=== PATIENT | male | born 1950 | race Caucasian/White ===

== ENCOUNTER 2016-06-22 14:02 | Emergency (ER) | payer MEDICARE ==
[2016-06-22] MEDS ORDERED: SODIUM CHLORIDE 0.9% 500 ML IV STA (14:59)
--- NOTE | 2016-06-22 15:21 | ED ---
Nausea/Vomiting/Diarrhea HPI - General Chief complaint: Abdominal Pain Stated complaint: [facility] sent/Abd Pain Time Seen by Provider: 06/22/16 14:26 Source: patient Mode of arrival: ambulatory Limitations: no limitations - History of Present Illness Initial comments: This patient is a 66-year-old man who presents to be evaluated for diarrhea and abdominal bloating. The patient was in his usual state of health until yesterday in the evening. He had eaten his dinner and then after 1-2 hours noted that his abdomen was feeling bloated. He was particularly having pressure in the epigastric area. Shortly after that he began to have a number of watery bowel movements. He did state that his abdomen felt hard to him. When the diarrhea continued this morning he went to the urgent care and was referred here. He did have an influenza test that was negative. The patient states he has not had coughing or dyspnea. He does not believe he had a fever. Patient does note that since he diarrhea has not been urinating much and his urine was a little darker. He did have some nausea this morning and had one small episode of vomiting without any blood or coffee-ground material MD complaint: nausea, vomiting, diarrhea -: hour(s) Description of Vomiting: food contents Description of Diarrhea: water Location: diffuse Severity: mild Quality: other (Bloating) Consistency: constant Improves with: none Worsens with: none - Related Data Home Medications Medication Instructions Recorded Confirmed Cholecalciferol [Vitamin D3] 5,000 unit PO HS 12/11/14 06/22/16 Omeprazole [PriLOSEC] 20 mg PO HS 12/11/14 06/22/16 Flaxseed Oil 1400mg 1,400 mg PO DAILY 06/22/16 06/22/16 Saw [place] 450mg 450 mg PO DAILY 06/22/16 06/22/16 Topiramate [Topamax] 50 mg PO BID 06/22/16 06/22/16 amLODIPine [Norvasc] 2.5 mg PO DAILY 06/22/16 06/22/16 Previous Rx's Medication Instructions Recorded Aspirin EC [Ecotrin] 325 mg PO DAILY tablet. 04/11/15 Atorvastatin [Lipitor] 40 mg PO DAILY tab 04/11/15 Fenofibrate [Lofibra] 160 mg PO DAILY tab 04/11/15 Metoprolol Tartrate [Lopressor] 25 mg PO BID tab 04/11/15 Metoclopramide [Reglan] 10 mg PO ACHS #12 tab 06/22/16 Allergies Allergy/AdvReac Type Severity Reaction Status Date / Time lactose Allergy Nausea & Verified 06/22/16 14:39 Vomiting & Diarrhea Review of Systems ROS Statement: Those systems with pertinent positive or pertinent negative responses have been documented in the HPI. ROS Other: All systems not noted in ROS Statement are negative. Constitutional: Denies: fever, chills Respiratory: Denies: cough, dyspnea Cardiovascular: Denies: chest pain, edema, syncope Gastrointestinal: Reports: abdominal pain, nausea, vomiting, diarrhea. Denies: hematemesis, melena, hematochezia Genitourinary: Denies: dysuria Musculoskeletal: Denies: back pain Skin: Denies: rash Neurological: Denies: headache Past Medical History Past Medical History: GERD/Reflux, Hyperlipidemia, Prostate Disorder Additional Past Medical History / Comment(s): hx lt orchitis; Blind since History of Any Multi-Drug Resistant Organisms: None Reported Past Surgical History: Hernia Repair, Orthopedic Surgery Additional Past Surgical History / Comment(s): LT TESTICLE PROCEDURE TO RELIEVE ORCHITIS. COLONOSCOPY (polyps removed). RT SHOULDER SX Past Anesthesia/Blood Transfusion Reactions: No Reported Reaction Past Psychological History: No Psychological Hx Reported Smoking Status: Never smoker Past Alcohol Use History: Occasional Past Drug Use History: None Reported - Past Family History Mother Family Medical History: No Reported History Father Additional Family Medical History / Comment(s): aortic aneurysms General Exam Limitations: no limitations General appearance: alert, in no apparent distress Head exam: Present: atraumatic, normocephalic Eye exam: Present: normal appearance. Absent: scleral icterus, conjunctival injection ENT exam: Present: normal oropharynx Respiratory exam: Present: normal lung sounds bilaterally. Absent: respiratory distress, wheezes, rales, rhonchi, stridor Cardiovascular Exam: Present: regular rate, normal rhythm, normal heart sounds. Absent: systolic murmur, diastolic murmur, rubs, gallop GI/Abdominal exam: Present: soft, distended, diminished bowel sounds. Absent: tenderness, guarding, rebound, mass, bruit, pulsatile mass, hernia Extremities exam: Present: normal inspection, normal capillary refill. Absent: pedal edema, calf tenderness Back exam: Absent: CVA tenderness (R), CVA tenderness (L) Neurological exam: Present: alert Skin exam: Present: warm, dry, intact, normal color. Absent: rash Course Vital Signs 06/22/16 14:19 Temperature 98.3 F Pulse Rate 98 Respiratory 17 Rate Blood Pressure 149/79 O2 Sat by Pulse 96 Oximetry Medical Decision Making - Lab Data Result diagrams: 06/22/16 15:00 06/22/16 15:00 Lab Results 06/22/16 06/22/16 06/22/16 Range/Units 15:00 15:00 15:00 WBC 5.5 (3.8-10.6) k/uL RBC 5.01 (4.30-5.90) m/uL Hgb 14.1 (13.0-17.5) gm/dL Hct 43.1 (39.0-53.0) % MCV 86.0 (80.0-100.0) fL MCH 28.1 (25.0-35.0) pg MCHC 32.7 (31.0-37.0) g/dL RDW 14.2 (11.5-15.5) % Plt Count 228 (150-450) k/uL Neutrophils % 82 % Lymphocytes % 11 % Monocytes % 5 % Eosinophils % 1 % Basophils % 0 % Neutrophils # 4.5 (1.3-7.7) k/uL Lymphocytes # 0.6 L (1.0-4.8) k/uL Monocytes # 0.3 (0-1.0) k/uL Eosinophils # 0.0 (0-0.7) k/uL Basophils # 0.0 (0-0.2) k/uL Sodium 145 (137-145) mmol/L Potassium 4.0 (3.5-5.1) mmol/L Chloride 112 H (98-107) mmol/L Carbon Dioxide 18 L (22-30) mmol/L Anion Gap 15 mmol/L BUN 29 H (9-20) mg/dL Creatinine 1.10 (0.66-1.25) mg/dL Est GFR (MDRD) Af Amer >60 (>60 ml/min/1.73 sqM) Est GFR (MDRD) Non-Af >60 (>60 ml/min/1.73 sqM) Glucose 115 H (74-99) mg/dL Plasma Lactic Acid Roberto 1.3 (0.7-2.0) mmol/L Calcium 8.8 (8.4-10.2) mg/dL Total Bilirubin 1.1 (0.2-1.3) mg/dL AST 35 (17-59) U/L ALT 75 H (21-72) U/L Alkaline Phosphatase 50 (38-126) U/L Total Protein 7.8 (6.3-8.2) g/dL Albumin 4.5 (3.5-5.0) g/dL Amylase 43 (30-110) U/L Lipase 99 (23-300) U/L Urine Color Urine Appearance (Clear) Urine pH (5.0-8.0) Ur Specific [place] (1.001-1.035) Urine Protein (Negative) Urine Glucose (UA) (Negative) Urine Ketones (Negative) Urine Blood (Negative) Urine Nitrate (Negative) Urine Bilirubin (Negative) Urine Urobilinogen (<2.0) mg/dL Ur Leukocyte Esterase (Negative) 06/22/16 Range/Units 17:00 WBC (3.8-10.6) k/uL RBC (4.30-5.90) m/uL Hgb (13.0-17.5) gm/dL Hct (39.0-53.0) % MCV (80.0-100.0) fL MCH (25.0-35.0) pg MCHC (31.0-37.0) g/dL RDW (11.5-15.5) % Plt Count (150-450) k/uL Neutrophils % % Lymphocytes % % Monocytes % % Eosinophils % % Basophils % % Neutrophils # (1.3-7.7) k/uL Lymphocytes # (1.0-4.8) k/uL Monocytes # (0-1.0) k/uL Eosinophils # (0-0.7) k/uL Basophils # (0-0.2) k/uL Sodium (137-145) mmol/L Potassium (3.5-5.1) mmol/L Chloride (98-107) mmol/L Carbon Dioxide (22-30) mmol/L Anion Gap mmol/L BUN (9-20) mg/dL Creatinine (0.66-1.25) mg/dL Est GFR (MDRD) Af Amer (>60 ml/min/1.73 sqM) Est GFR (MDRD) Non-Af (>60 ml/min/1.73 sqM) Glucose (74-99) mg/dL Plasma Lactic Acid Roberto (0.7-2.0) mmol/L Calcium (8.4-10.2) mg/dL Total Bilirubin (0.2-1.3) mg/dL AST (17-59) U/L ALT (21-72) U/L Alkaline Phosphatase (38-126) U/L Total Protein (6.3-8.2) g/dL Albumin (3.5-5.0) g/dL Amylase (30-110) U/L Lipase (23-300) U/L Urine Color Yellow Urine Appearance Clear (Clear) Urine pH 5.5 (5.0-8.0) Ur Specific [place] 1.026 (1.001-1.035) Urine Protein Trace H (Negative) Urine Glucose (UA) Negative (Negative) Urine Ketones Negative (Negative) Urine Blood Negative (Negative) Urine Nitrate Negative (Negative) Urine Bilirubin Negative (Negative) Urine Urobilinogen <2.0 (<2.0) mg/dL Ur Leukocyte Esterase Negative (Negative) Disposition Clinical Impression: Abdominal bloating Disposition: HOME SELF-CARE Condition: Fair Instructions: Indigestion (ED), Gastroparesis (ED) Prescriptions: Metoclopramide [Reglan] 10 mg PO ACHS #12 tab Referrals: Raúl Rush MD [Primary Care Provider] - 1-2 days Kimmie Simpson MD [STAFF PHYSICIAN] - 1-2 days
[2016-06-22 15:26] LABS: Basophils % (A) 0 %; CH 28.3; Eosinophils % (A) 1 %; HCT 43.1 % (39.0-53.0); HDW 2.92; HGB 14.1 gm/dL (13.0-17.5); Luc # (Auto) 0.08; Luc % (Auto) 2; Lymphocytes # (A) 0.6 k/uL (1.0-4.8); Lymphocytes % (A) 11 %; MCH 28.1 pg (25.0-35.0); MCHC 32.7 g/dL (31.0-37.0); Monocytes # (A) 0.3 k/uL (0-1.0); Monocytes % (A) 5 %; Neutrophils # (A) 4.5 k/uL (1.3-7.7); Neutrophils % (A) 82 %; RBC 5.01 m/uL (4.30-5.90); RDW 14.2 % (11.5-15.5); WBC 5.5 k/uL (3.8-10.6); WBC (Perox) 5.95
[2016-06-22 15:29] LABS: ALT 75 U/L (21-72); AST 35 U/L (17-59); Alkaline Phosphatase 50 U/L (38-126); Amylase 43 U/L (30-110); Anion Gap 15 mmol/L; Blood Urea Nitrogen 29 mg/dL (9-20); Calcium 8.8 mg/dL (8.4-10.2); Carbon Dioxide 18 mmol/L (22-30); Chloride 112 mmol/L (98-107); Glucose 115 mg/dL (74-99); Non-African American GFR(MDRD) >60 (>60 ml/min/1.73 sqM); Sodium 145 mmol/L (137-145); Total Bilirubin 1.1 mg/dL (0.2-1.3); Total Protein 7.8 g/dL (6.3-8.2)
--- NOTE | 2016-06-22 15:51 | XR ---
EXAMINATION TYPE: XR abdomen acute w cxr DATE OF EXAM: 06/22/2016 3:43 PM COMPARISON: NONE HISTORY: Pain TECHNIQUE: Supine, upright, and left side down lateral decubitus views of the abdomen are obtained. FINDINGS: Single view of the chest fail to demonstrate evidence for acute pulmonary disease. There is no evidence for pneumoperitoneum. Noted are on mildly dilated loops of small bowel measuring up to 3.5 cm. Air is seen within the colon . The findings may reflect ileus however distal small bowel obstruction is difficult to exclude. Prog ress studies are recommended. Scattered air-fluid levels noted. No mass effects are seen. No unusual calcifications. IMPRESSION: Small bowel ileus versus obstruction. The correlate clinically and progress studies may be of value.
--- NOTE | 2016-06-22 16:23 | CT ---
EXAMINATION TYPE: CT abdomen pelvis wo con DATE OF EXAM: 06/22/2016 4:14 PM COMPARISON: NONE HISTORY: Patient complains of bloating. CT DLP: 893.6 mGycm FINDINGS: LUNG BASES: No evidence for nodule. No evidence for infiltrate. LIVER/GB: The gallbladder is unremarkable. No space-occupying hepatic lesion. There is fatty hepatic infiltration. PANCREAS: No pancreatic mass identified. No inflammatory process seen. SPLEEN: No evidence for splenomegaly. No intrasplenic lesions seen. ADRENALS: No adrenal nodules identified. No evidence for thickening. KIDNEYS: 3.1 cm cystic lesion left kidney may reflect a cyst. No nephrolithiasis. No hydronephrosis. BOWEL: Gastric distention with food debris. Appendix has a normal appearance. No evidence of bowel ob struction. No inflammatory process. Fat-containing inguinal hernias. Lymph nodes: No evidence for adenopathy greater than 1 cm. Abdominal aorta: Atheromatous changes seen. No evidence for aneurysm. Genital organs: No significant abnormality. Other: No significant abnormality. IMPRESSION: 1. GASTRIC DISTENTION WITH FOOD DEBRIS. CONSIDER DIRECT VISUALIZATION. 2. FATTY LIVER.
[2016-06-22 17:22] LABS: Appearance,Urine Clear (Clear); Bilirubin,Urine Negative (Negative); Glucose,Urine (UA) Negative (Negative); Ketones,Urine Negative (Negative); Leukocyte Esterase,Urine Negative (Negative); Nitrite,Urine Negative (Negative); PH, Urine 5.5 (5.0-8.0); Protein,Urine Trace (Negative); Specific Gravity,Urine 1.026 (1.001-1.035); UA Billing (MACRO vs. MICRO) CHEM; Urobilinogen,Urine <2.0 mg/dL (<2.0)
[2016-06-22 18:10] VITALS: BP 138/72; PULSE 82; RESP 20; TEMP 98
== END 2016-06-22 18:33 | disposition home or self-care (01) ==
LOC: EC 14:02
DX: R14.0 Abdominal distension (gaseous) (principal); K21.9 Gastro-esophageal reflux disease without esophagitis; E78.5 Hyperlipidemia, unspecified; N42.9 Disorder of prostate, unspecified; H54.0 Blindness, both eyes; Z91.011 Allergy to milk products; Z79.899 Other long term (current) drug therapy; Z79.82 Long term (current) use of aspirin
CPT/HCPCS: 36415; 74022; 74176; 80053; 81003; 82150; 83605; 83690; 85025; 99284

== ENCOUNTER 2016-06-25 09:56 | Day surgery (SDC) | payer MEDICARE ==
[2016-06-24 08:08] VITALS: BMI 30.5
[2016-06-25 10:40] VITALS: RESP 16; TEMP 97.9
[2016-06-25] MEDS ORDERED: LIDOCAINE 1% 20 ML VIAL (10MG/ML) FOR IV START INTRADERMA ONE (10:44)
[2016-06-25] MEDS ORDERED: LACTATED RINGERS 1,000 ML IV ONE (10:50)
[2016-06-25] MEDS ORDERED: LACTATED RINGERS 1,000 ML IV SCH (11:00)
[2016-06-25] MEDS ORDERED: PROPOFOL 10 MG/ML 20 ML VIAL IV ONE (11:31)
[2016-06-25] MEDS ORDERED: LIDOCAINE 1% INJ 10MG/ML (20 ML MDV) ONE (11:31)
--- NOTE | 2016-06-25 11:49 | P.PCN ---
Date of Procedure: 06/25/16 Procedure(s) Performed: BRIEF HISTORY: Patient is a 66-year-old, pleasant, white male scheduled for an upper endoscopy as a part of evaluation of epigastric pain and abdominal bloating for the last 2-3 days' duration. He went emergency room last weekend and had a CT of the abdomen and pelvis done that showed gastric distention with retained food debris in the stomach suspicious for gastroparesis. He was discharged home and Prilosec and Reglan and since then he is feeling somewhat better. He felt for an upper endoscopy to rule out gastric outlet obstruction. PROCEDURE PERFORMED: Esophagogastroduodenoscopy with biopsy. PREOPERATIVE DIAGNOSIS: Epigastric pain/abdominal distention. IV sedation per anesthesia. PROCEDURE: After informed consent was obtained, the patient was brought into the endoscopy unit. IV conscious sedation was administered by Anesthesia under continuous monitoring. Initially the Olympus GIF-140 video endoscope was inserted into the mouth. Esophagus intubated without any difficulty. It was gradually advanced into the stomach and duodenum and carefully examined. The bulb and the second part of the duodenum appeared normal. The scope at this time was withdrawn to the stomach, adequately insufflated with air, and upon careful examination, mucosa of the antrum had scattered erosions and biopsies were done from this area. The body, cardia and the fundus appeared normal. The scope was then withdrawn into the esophagus. The GE junction was located at 39 cm from the incisors. The esophagus appeared normal. There were no erosions or ulcerations seen and the patient tolerated the procedure well. IMPRESSION: 1. Mild antral gastritis. 2. No evidence of retained food in the stomach or gastric outlet obstruction. RECOMMENDATIONS: The findings of this examination were discussed with the patient as well as his family. He was advised to follow with the biopsy results. He will continue with Prilosec 20 mg daily and use Reglan only as needed. He'll be seen in the office in 2-3 weeks.
[2016-06-25 12:15] VITALS: PULSE 69
[2016-06-25 12:23] VITALS: BP 141/74
== END 2016-06-25 12:36 | disposition home or self-care (01) ==
LOC: ORWHC2ENDO 09:56
PROVIDERS: ATTEND Internal Medicine Gastroenterology
DX: K29.50 Unspecified chronic gastritis without bleeding (principal); K21.9 Gastro-esophageal reflux disease without esophagitis; E78.5 Hyperlipidemia, unspecified; Z79.899 Other long term (current) drug therapy; Z79.82 Long term (current) use of aspirin
CPT/HCPCS: 88305; 88342; 43239; J2001; J2704

== ENCOUNTER → 2017-09-04 | Outpatient (CLI) | payer MEDICARE ==
--- NOTE | 2017-09-04 09:03 | CT ---
EXAMINATION TYPE: CT sinus w con DATE OF EXAM: 09/04/2017 COMPARISON: NONE HISTORY: Chronic sinusitis, polyps CT DLP: 716 mGycm Automated exposure control for dose reduction was used. CONTRAST: CT scan of the facial bones is performed with IV Contrast, patient injected with 100 mL of Isovue 300 . TECHNIQUE: CT scan of the sinuses is performed without contrast, axial images are obtained, coronal r eformatted images are also reviewed. FINDINGS: There are mucosal retention cyst versus maxillary polyps within the right maxillary sinus m easuring 1.0 and 0.8 cm. Lobulated mild mucosal thickening is seen of the anterolateral right axillar y sinus and along the medial and posterior reid. Small antrostomy defects are noted of the maxillary sinuses. Scant mucosal thickening is seen within the left maxillary sinus and mild mucosal thickenin g within the ethmoid sinuses. The frontal sinuses are hypoplastic with the presumed well-circumscribe d left frontal 5 mm osteoma. Sphenoid sinuses are well aerated as are the visualized portion of the m astoid air cells. No middle ear cavity fluid. External auditory canals are patent. Osseous structures are intact with an old fracture deformity of the nasal bone. There is slight leftward bowing of the nasal septum and a 2 mm leftward nasal spur as well as a 2 mm more inferior rightward nasal septal spur. Mucosal hypertrophy is seen surrounding the left middle an d inferior nasal turbinates. Anterior left maxillary mucosal retention cyst versus polyp measures 8 m m in craniocaudal dimension. The ostia medial complexes are patent. No contra bullosa or Kirk cells are appreciated. Visualized portion of the brain is suboptimally evaluated due to technique although no gross abnormalities are seen. Bilateral phthisis bulbi is present. Calculus is noted within the l eft parotid gland incidentally. Findings throughout the examination are overall similar to the prior of 03/26/2012. IMPRESSION: 1. Bilateral maxillary mucosal retention cyst versus maxillary polyps with the largest measuring 1.0 cm in the right maxillary sinus similar to the prior exam of 2011. 2. Mild mucosal thickening within the maxillary and ethmoid sinuses without ostia medial complex occl usion. No Kirk cells or thiago bullosa. Frontal sinuses are hypoplastic. 3. Slight leftward bowing of the nasal septum with 2 mm leftward and rightward nasal septal spurs. 4. Mucosal hypertrophy surrounding the left middle and inferior nasal turbinates, nonocclusive.
== END | disposition home or self-care (01) ==
LOC: RADCTMAIN 07:15
PROVIDERS: ATTEND Family Medicine
DX: J34.1 Cyst and mucocele of nose and nasal sinus (principal); J34.89 Other specified disorders of nose and nasal sinuses; Q30.8 Other congenital malformations of nose
CPT/HCPCS: 82565; 84520; 36415; 70487; Q9967

== ENCOUNTER 2018-02-03 09:25 | Day surgery (SDC) | payer MEDICARE ==
[2018-01-27 16:03] VITALS: BMI 31.3
[~2018-02-03 09:25] MED LIST: DEXAMETHASONE SOD PHOSPHATE 4 MG/ML 1 ML VIAL IV ONE; FAMOTIDINE 20 MG/2 ML VIAL IV ONE; HYDROmorphone 0.5 MG/0.5 ML SYRINGE IVP PRN; LACTATED RINGERS 1,000 ML IV SCH; MORPHINE SULFATE 2 MG/ML SYRINGE IV PRN; ONDANSETRON 4 MG/2 ML VIAL IVP ONE; ceFAZolin 1,000 MG in DEXTROSE/WATER 1 50ML.BAG IV ONE
[2018-02-03] MEDS: OXYMETAZOLINE 0.05% NASL SPRAY 1 SPRAY BOTTLE NASAL ONE ×5 (10:46→11:20)
[2018-02-03] MEDS ORDERED: LIDOCAINE 1% 20 ML VIAL (10MG/ML) FOR IV START INTRADERMA ONE (10:57)
[2018-02-03] MEDS ORDERED: DEXAMETHASONE SOD PHOS (MDV) 100 MG/10 ML VIAL IVP ONE (10:58)
[2018-02-03] MEDS ORDERED: ONDANSETRON 4 MG/2 ML VIAL IVP ONE (11:00)
[2018-02-03] MEDS ORDERED: fentaNYL (PF) 50 MCG/ML 2 ML AMP ONE (11:40)
[2018-02-03] MEDS ORDERED: LIDOCAINE 1% INJ 10MG/ML (20 ML MDV) ONE (11:40)
[2018-02-03] MEDS ORDERED: GLYCOPYRROLATE 0.2 MG/ML 2 ML VIAL ONE (11:40)
[2018-02-03] MEDS ORDERED: ROCURONIUM BROMIDE 10 MG/ML 10 ML VIAL IV ONE (11:40)
[2018-02-03] MEDS ORDERED: ePHEDrine SULFATE/0.9% NACL/PF 50 MG/5 ML SYRINGE IV ONE (11:40)
[2018-02-03] MEDS ORDERED: NEOSTIGMINE 1 MG/ML 10 ML VIAL ONE (11:40)
[2018-02-03] MEDS ORDERED: PROPOFOL 10 MG/ML 20 ML VIAL IV ONE (11:40)
[2018-02-03] MEDS ORDERED: MIDAZOLAM 2 MG/2 ML VIAL ONE (11:40)
[2018-02-03] MEDS ORDERED: LIDOCAINE 1%-EPI 1:100,000 30 ML VIAL SUBMUCOSAL ONE ×2 (11:54)
[2018-02-03] MEDS ORDERED: BACITRACIN 500 UNIT/GM OINT 28.4 GM TUBE TOPICAL ONE (12:26)
--- NOTE | 2018-02-03 12:49 | P.OP ---
Date of Procedure: 02/03/18 Preoperative Diagnosis: Deviated nasal septum Inferior turbinate hypertrophy Chronic sinusitis Postoperative Diagnosis: Same Procedure(s) Performed: Septoplasty Inferior turbinoplasty Bilateral endoscopic sinus surgery including bilateral maxillary antrostomy with removal of tissue from the maxillary sinuses and bilateral anterior ethmoidectomy Anesthesia: CHERRI Surgeon: Jerome Torres Estimated Blood Loss (ml): 5 Pathology: other (Nasal septal bone and cartilage and sinus contents) Condition: stable Disposition: PACU Indications for Procedure: This is a 67-year-old white male whose had difficulties with chronic nasal airway obstruction and congestion despite medical management as well as chronic sinusitis with findings of chronic sinusitis on computed tomography scan Operative Findings: Nasal septum deviated to the left anteriorly and to the right posteriorly, inferior turbinate hypertrophy bilaterally, moderate mucosal thickening maxillary sinuses bilaterally with small cysts and mucosal thickening throughout the anterior ethmoid air cells Description of Procedure: The patient was brought in the operative suite and placed in a supine position. The patient underwent induction of general anesthesia with oral endotracheal intubation without difficulty. Patient was prepped and draped in usual aseptic fashion. Orbits were in the operating field for monitoring throughout the case. Computed tomography scan was then the computer screen for review throughout the case also. 1% lidocaine with 1 1000 epinephrine was infused submucosally both sides nasal septum as well as lateral nasal wall bilaterally and anterior tips the middle turbinates bilaterally. While this was taking vasoconstrictive effect the inferior turbinates were infractured with [place] elevator partial submucous resection of the inferior turbinates performed with the [place] wand and then outfractured with the [place] elevator. Left hemitransfixion incision was made with the mucoperichondrial The flap on the left elevated. Bony cartilaginous junction was disarticulated and mucoperiosteal flap on the right was elevated. Bony nasal septal deformities were removed Mary's forceps. An inferior cartilaginous strip was removed leaving a full 1.5 cm caudal strut. Checking intranasally this corrected the nasoseptal deformities and the hemitransfixion incision was closed with a running 4-0 chromic suture. Full 0 endoscopic examination is performed bilaterally. Beginning on the left the middle turbinate was medialized with the [place] elevator. Maxillary antrostomy was performed at the expense of the of the anterior and posterior fontanelle taking care anteriorly not to injure the lacrimal bone. Infundibulotomy was performed followed by uncinectomy. Maxillary sinus cysts were removed with giraffe forceps. An anterior ethmoidectomy was then performed from anterior to posterior to the level skull base with the roof the anterior ethmoid air cells cleaned with up-biting [place]akes[place] forceps. Nasopharyngeal duct noted to be patent grossly. Attention was then turned to the right where the procedures were followed as they were on the left including max antrostomy with removal cysts uncinectomy infundibulotomy medialization middle turbinate and anterior ethmoidectomy. Once this was completed the nasal pore nasal dressings were placed in the middle meatus under direct visualization and bilateral Amaya airway splints coated bacitracin ointment were placed in nasal cavities and sutured transseptal 4-0 nylon suture. Patient was then suctioned in oral gastric fashion and was allowed to emerge from general anesthesia and tolerated well was extended operating suite and transferred postoperative recovery room in satisfactory condition.
[2018-02-03 13:00] VITALS: TEMP 97
[2018-02-03 13:49] VITALS: BP 147/87; RESP 18
[2018-02-03 14:04] VITALS: PULSE 81
== END 2018-02-03 15:00 | disposition home or self-care (01) ==
LOC: OR 09:25
PROVIDERS: ATTEND Otolaryngology
DX: J34.2 Deviated nasal septum (principal); J34.3 Hypertrophy of nasal turbinates; J32.0 Chronic maxillary sinusitis; J34.1 Cyst and mucocele of nose and nasal sinus; E66.9 Obesity, unspecified; Z68.31 Body mass index [BMI] 31.0-31.9, adult; H54.8 Legal blindness, as defined in USA; K21.9 Gastro-esophageal reflux disease without esophagitis; M19.90 Unspecified osteoarthritis, unspecified site; I10 Essential (primary) hypertension; E78.5 Hyperlipidemia, unspecified; I69.30 Unspecified sequelae of cerebral infarction; Z79.82 Long term (current) use of aspirin; Z79.891 Long term (current) use of opiate analgesic; Z79.52 Long term (current) use of systemic steroids; Z79.899 Other long term (current) drug therapy; Z91.011 Allergy to milk products; Z87.891 Personal history of nicotine dependence
CPT/HCPCS: 88305; 88300; 30520; 30140; 31267; 31254; J2250; J2710; J2405; J2001; J3010; J0690; J1100; J2704

== ENCOUNTER 2020-08-21 19:14 | Emergency (ER) | payer MEDICARE ==
[2020-08-21 19:37] VITALS: TEMP 99.1
[2020-08-21] MEDS ORDERED: KETOROLAC 15 MG/ML 1 ML VIAL IVP STA (20:59)
[2020-08-21] MEDS ORDERED: CLINDAMYCIN 600 MG in DEXTROSE 5% IN WATER 50 ML IVPB STA ×2 (21:00)
[2020-08-21] MEDS ORDERED: SODIUM CHLORIDE 0.9% 500 ML 500 ML IV SCH (21:00)
--- NOTE | 2020-08-21 21:30 | ED ---
General Adult HPI - General Chief complaint: ENT Stated complaint: Facial pain Time Seen by Provider: 08/21/20 20:33 Source: patient, RN notes reviewed Mode of arrival: ambulatory Limitations: no limitations - History of Present Illness Initial comments: 70-year-old male with a past medical history of hyperlipidemia, CVA, blindness presents to the emergency room for a chief of left-sided facial pain. Patient states he has had left-sided jaw pain for 6 weeks. States that he also had a sore throat with this. He was on Keflex and Cipro. Patient states that over the past 5 days the swelling in the left jaw has worsened. He did see the dentist about 5 days ago. States the dentist thought this could be related to a missing tooth and infection. States they started him on his throat. Patient states that pain and swelling is worsening and not getting better. He denies fevers. He states he was told he should get a CAT scan or ultrasound of the neck. Patient has no other complaints at this time including shortness of breath, chest pain, abdominal pain, nausea or vomiting, headache, or visual changes. - Related Data Home Medications Medication Instructions Recorded Confirmed Cholecalciferol [Vitamin D3 (25 5,000 unit PO DAILY 12/11/14 01/27/18 Mcg = 1000 Iu)] Omeprazole [PriLOSEC] 20 mg PO HS 12/11/14 02/03/18 Flaxseed Oil 1400mg 1,400 mg PO DAILY 06/22/16 01/27/18 Topiramate [Topamax] 50 mg PO BID 06/22/16 02/03/18 amLODIPine [Norvasc] 2.5 mg PO DAILY 06/22/16 01/27/18 Atorvastatin [Lipitor] 40 mg PO HS 06/24/16 01/27/18 Aspirin 81 mg PO BID 01/27/18 01/27/18 Fenofibrate [Lofibra] 160 mg PO HS 01/27/18 02/03/18 Folic Acid 0.4 mg PO DAILY 01/27/18 01/27/18 Previous Rx's Medication Instructions Recorded Metoprolol Tartrate [Lopressor] 25 mg PO BID tab 04/11/15 Metoclopramide [Reglan] 10 mg PO ACHS #12 tab 06/22/16 Amoxicillin/Potassium Clav 1 tab PO Q12HR #20 tab 08/21/20 [Augmentin 875-125 Tablet] Allergies Allergy/AdvReac Type Severity Reaction Status Date / Time lactose Allergy Nausea & Verified 08/21/20 19:34 Vomiting & Diarrhea Review of Systems ROS Statement: Those systems with pertinent positive or pertinent negative responses have been documented in the HPI. ROS Other: All systems not noted in ROS Statement are negative. Past Medical History Past Medical History: CVA/TIA, GERD/Reflux, Hyperlipidemia, Prostate Disorder Additional Past Medical History / Comment(s): Hx lt orchitis; Blind since , slight weakness on the R side from stroke in 2015. Seizures in high school. History of Any Multi-Drug Resistant Organisms: None Reported Past Surgical History: Hernia Repair, Orthopedic Surgery Additional Past Surgical History / Comment(s): LT TESTICLE PROCEDURE TO RELIEVE ORCHITIS. COLONOSCOPY (polyps removed). RT SHOULDER SX Past Anesthesia/Blood Transfusion Reactions: No Reported Reaction Past Psychological History: No Psychological Hx Reported Smoking Status: Never smoker Past Alcohol Use History: Occasional Past Drug Use History: None Reported - Past Family History Mother Family Medical History: No Reported History Father Additional Family Medical History / Comment(s): aortic aneurysms General Exam Limitations: no limitations General appearance: alert, in no apparent distress Head exam: Present: atraumatic, normocephalic, normal inspection Eye exam: Present: PERRL, EOMI, other (blindness). Absent: scleral icterus, conjunctival injection, periorbital swelling ENT exam: Present: normal oropharynx (missing tooth 19, no abscess visualized or palpated along the gumline. She does have mild edema of the left jaw area.). Absent: normal exam Neck exam: Present: normal inspection, full ROM. Absent: tenderness, meningismus, lymphadenopathy Respiratory exam: Present: normal lung sounds bilaterally. Absent: respiratory distress, wheezes, rales, rhonchi, stridor Cardiovascular Exam: Present: regular rate, normal rhythm, normal heart sounds. Absent: systolic murmur, diastolic murmur, rubs, gallop, clicks GI/Abdominal exam: Present: soft, normal bowel sounds. Absent: distended, tenderness, guarding, rebound, rigid Course Vital Signs 08/21/20 19:31 Temperature 99.1 F Pulse Rate 95 Respiratory 18 Rate Blood Pressure 186/72 O2 Sat by Pulse 97 Oximetry Medical Decision Making - Medical Decision Making Vitals are stable. HPI physical exam is documented. No evident drainable fluid abscess. CBC CMP unremarkable. CT soft tissue neck 5 x 3 cm area of i nflammatory changes consistent with phlegmon and adenopathy. No drainable fluid collection. Possible small abscesses at the base of the tongue. This cannot be visualized on exam. Patient has been on Keflex, Cipro, and azithromycin. We will switch him to Augmentin. We did discuss this case with Dr. Marte who will see patient in his office tomorrow. He will return for any worsening symptoms. - Lab Data Result diagrams: 08/21/20 21:28 08/21/20 21:28 Lab Results 08/21/20 08/21/20 08/21/20 Range/Units 21: 21: 21: WBC 10.0 (3.8-10.6) k/uL RBC 4.71 (4.30-5.90) m/uL Hgb 13.4 (13.0-17.5) gm/dL Hct 39.2 (39.0-53.0) % MCV 83.3 (80.0-100.0) fL MCH 28.5 (25.0-35.0) pg MCHC 34.2 (31.0-37.0) g/dL RDW 13.3 (11.5-15.5) % Plt Count 282 (150-450) k/uL MPV 7.0 Neutrophils % 79 % Lymphocytes % 12 % Monocytes % 6 % Eosinophils % 1 % Basophils % 1 % Neutrophils # 7.9 H (1.3-7.7) k/uL Lymphocytes # 1.2 (1.0-4.8) k/uL Monocytes # 0.6 (0-1.0) k/uL Eosinophils # 0.1 (0-0.7) k/uL Basophils # 0.1 (0-0.2) k/uL Sodium 140 (137-145) mmol/L Potassium 5.0 (3.5-5.1) mmol/L Chloride 103 (98-107) mmol/L Carbon Dioxide 26 (22-30) mmol/L Anion Gap 11 mmol/L BUN 16 (9-20) mg/dL Creatinine 0.86 (0.66-1.25) mg/dL Est GFR (CKD-EPI)AfAm >90 (>60 ml/min/1.73 sqM) Est GFR (CKD-EPI)NonAf 89 (>60 ml/min/1.73 sqM) Glucose 112 H (74-99) mg/dL Plasma Lactic Acid Roberto 1.0 (0.7-2.0) mmol/L Calcium 9.1 (8.4-10.2) mg/dL Total Bilirubin 0.9 (0.2-1.3) mg/dL AST 40 (17-59) U/L ALT 35 (4-49) U/L Alkaline Phosphatase 72 (38-126) U/L Total Protein 8.0 (6.3-8.2) g/dL Albumin 4.4 (3.5-5.0) g/dL Disposition Clinical Impression: Dental infection Disposition: HOME SELF-CARE Condition: Good Instructions (If sedation given, give patient instructions): Dental Abscess (ED) Additional Instructions: Please follow-up with oral surgeon tomorrow. Take antibiotic as directed. Return to the emergency room for any worsening symptoms. Prescriptions: Amoxicillin/Potassium Clav [Augmentin 875-125 Tablet] 1 tab PO Q12HR #20 tab Is patient prescribed a controlled substance at d/c from ED?: No Referrals: Raúl Rush MD [Primary Care Provider] - 1-2 days Jacobo Marte DDS [STAFF PHYSICIAN] - 1-2 days Time of Disposition: 23:52
[2020-08-21 21:54] LABS: Basophils # (A) 0.1 k/uL (0-0.2); Basophils % (A) 1 %; Eosinophils # (A) 0.1 k/uL (0-0.7); Eosinophils % (A) 1 %; HCT 39.2 % (39.0-53.0); HGB 13.4 gm/dL (13.0-17.5); Lymphocytes # (A) 1.2 k/uL (1.0-4.8); Lymphocytes % (A) 12 %; MCH 28.5 pg (25.0-35.0); MCHC 34.2 g/dL (31.0-37.0); MCV 83.3 fL (80.0-100.0); Monocytes # (A) 0.6 k/uL (0-1.0); Monocytes % (A) 6 %; Neutrophils # (A) 7.9 k/uL (1.3-7.7); Neutrophils % (A) 79 %; Platelet Count 282 k/uL (150-450); RBC 4.71 m/uL (4.30-5.90); RDW 13.3 % (11.5-15.5)
[2020-08-21 22:05] LABS: Anion Gap 11 mmol/L; Blood Urea Nitrogen 16 mg/dL (9-20); Carbon Dioxide 26 mmol/L (22-30); Chloride 103 mmol/L (98-107); Glucose 112 mg/dL (74-99); Sodium 140 mmol/L (137-145)
[2020-08-21 22:06] LABS: ALT 35 U/L (4-49); AST 40 U/L (17-59); African American GFR (CKD) >90 (>60 ml/min/1.73 sqM); Albumin 4.4 g/dL (3.5-5.0); Alkaline Phosphatase 72 U/L (38-126); Calcium 9.1 mg/dL (8.4-10.2); Non-African American GFR(CKD) 89 (>60 ml/min/1.73 sqM); Total Bilirubin 0.9 mg/dL (0.2-1.3)
--- NOTE | 2020-08-21 23:17 | CT ---
EXAMINATION TYPE: CT soft tissue neck w con DATE OF EXAM: 08/21/2020 COMPARISON: None HISTORY: left side facial and neck swelling CT DLP: 289.2 mGycm Automated exposure control for dose reduction was used. CONTRAST: Performed with IV Contrast, patient injected with 100 mL of Isovue 370. Images obtained from the level of the top of the aortic arch to the top of the frontal sinuses with I V contrast. Superior mediastinum shows no adenopathy. Thyroid gland is symmetric. There is contrast enhancement o f the carotid arteries and jugular veins. I see no evidence of hemodynamic stenosis. The trachea appe ars intact. Subglottic trachea appears normal. Epiglottis appears normal. Prevertebral soft tissues a ppear normal. Tonsils and adenoids appear normal. The parotid glands are symmetric. The submandibular salivary glands are symmetric. There is some asymmetric soft tissue swelling in the left submandibul ar region with fat stranding anterior to the left submandibular salivary gland. There is 2 x 1 cm enl arged left side submandibular lymph node. There is also a small low-density area on the left side of the base of the tongue. This measures 1 cm and could be small abscess or phlegmon. There is no evidence of orbital mass. There is bilateral lower lobe implants. There is no evidence of retro-orbital mass. IMPRESSION: There is an approximate 5 x 3 cm area of inflammatory changes in the left side submandibular region c onsistent with a phlegmon and adenopathy. No drainable fluid collection in this area. There is also h ypodense area at the base of the tongue on the left side that could be phlegmon or small abscess perez uring 1 cm. Tongue deviated slightly to the right side as a result of the inflammatory mass.
[2020-08-21] MEDS ORDERED: AMOXIC-POT CLAV 875MG STARTER PACK 2 TAB BTL PO STA (23:52)
[2020-08-21] MEDS ORDERED: ACET/COD 300 MG/30 MG STARTER PACK 6 TAB BTL PO STA (23:53)
[2020-08-22 00:13] VITALS: BP 162/87; PULSE 91; RESP 16
== END 2020-08-22 00:23 | disposition home or self-care (01) ==
LOC: EC 19:14
DX: K04.7 Periapical abscess without sinus (principal); K21.9 Gastro-esophageal reflux disease without esophagitis; E78.5 Hyperlipidemia, unspecified; Z79.82 Long term (current) use of aspirin; Z79.899 Other long term (current) drug therapy; Z91.048 Other nonmedicinal substance allergy status; Z86.73 Personal history of transient ischemic attack (TIA), and cerebral infarction without residual deficits
CPT/HCPCS: 36415; 80053; 83605; 85025; 87040; 70491; 99284; 96365; 96375; 96361; J1885; Q9967

== ENCOUNTER 2022-08-06 00:02 | Emergency (ER) | payer MEDICARE ==
--- NOTE | 2022-08-06 00:07 | ED ---
General Adult HPI - General Source: RN notes reviewed <Odessa Santiago - Last Filed: 08/06/22 00:07> - General Source: patient, family, RN notes reviewed, old records reviewed <Delon Barajas - Last Filed: 08/06/22 03:33> - General Stated complaint: Difficulty Breathing, Cough Time Seen by Provider: 08/06/22 00:07 - History of Present Illness Initial comments: 72-year-old male with a past medical history significant for blindness presents the emergency department with worsening cough and shortness of breath. (Odessa Santiago) 72-year-old male who presents for evaluation of fever, cough, mild dyspnea. Symptoms have been present for the past 5 days. 3 days ago the patient was started on azithromycin without significant improvement. Patient has had some productive cough. No chest pain. (Delon Barajas) - Related Data Home Medications Medication Instructions Recorded Confirmed Cholecalciferol [Vitamin D3 (25 5,000 unit PO DAILY 12/11/14 01/27/18 Mcg = 1000 Iu)] Omeprazole [PriLOSEC] 20 mg PO HS 12/11/14 02/03/18 Flaxseed Oil 1400mg 1,400 mg PO DAILY 06/22/16 01/27/18 Topiramate [Topamax] 50 mg PO BID 06/22/16 02/03/18 amLODIPine [Norvasc] 2.5 mg PO DAILY 06/22/16 01/27/18 Atorvastatin [Lipitor] 40 mg PO HS 06/24/16 01/27/18 Aspirin 81 mg PO BID 01/27/18 01/27/18 Fenofibrate [Lofibra] 160 mg PO HS 01/27/18 02/03/18 Folic Acid 0.4 mg PO DAILY 01/27/18 01/27/18 Previous Rx's Medication Instructions Recorded Metoprolol Tartrate [Lopressor] 25 mg PO BID tab 04/11/15 Metoclopramide [Reglan] 10 mg PO ACHS #12 tab 06/22/16 Amoxicillin/Potassium Clav 1 tab PO Q12HR #20 tab 08/21/20 [Augmentin 875-125 Tablet] Albuterol Inhaler [Ventolin Hfa 1 - 2 puff INHALATION Q4HR PRN #1 08/06/22 Inhaler] each Amoxic-Pot Clav 875-125Mg 1 tab PO Q12HR 10 Days #20 tab 08/06/22 [Augmentin 875-125] Promethazine HCl/Codeine 5 ml PO Q6H 3 Days #60 ml 08/06/22 [Promethazine HCl/Codeine Solution] methylPREDNISolone Dose Pack 4 mg PO DIRECTED #21 packet 08/06/22 [Medrol Dose Pack] Allergies Allergy/AdvReac Type Severity Reaction Status Date / Time lactose Allergy Nausea & Verified 08/06/22 00:08 Vomiting & Diarrhea Review of Systems ROS Other: All systems not noted in ROS Statement are negative. <Odessa Santiago - Last Filed: 08/06/22 00:07> ROS Other: All systems not noted in ROS Statement are negative. <Delon Barajas - Last Filed: 08/06/22 03:33> ROS Statement: Those systems with pertinent positive or pertinent negative responses have been documented in the HPI. Past Medical History Past Medical History: CVA/TIA, GERD/Reflux, Hyperlipidemia, Prostate Disorder Additional Past Medical History / Comment(s): Hx lt orchitis; Blind since , slight weakness on the R side from stroke in 2015. Seizures in high school. History of Any Multi-Drug Resistant Organisms: None Reported Past Surgical History: Hernia Repair, Orthopedic Surgery Additional Past Surgical History / Comment(s): LT TESTICLE PROCEDURE TO RELIEVE ORCHITIS. COLONOSCOPY (polyps removed). RT SHOULDER SX Past Anesthesia/Blood Transfusion Reactions: No Reported Reaction Past Psychological History: No Psychological Hx Reported Smoking Status: Never smoker Past Alcohol Use History: Occasional Past Drug Use History: None Reported - Past Family History Mother Family Medical History: No Reported History Father Additional Family Medical History / Comment(s): aortic aneurysms <Odessa Santiago - Last Filed: 08/06/22 00:07> General Exam <Odsesa Santiago - Last Filed: 08/06/22 00:07> General appearance: alert, in no apparent distress Head exam: Present: atraumatic, normocephalic Eye exam: Present: normal appearance, PERRL ENT exam: Present: normal exam Neck exam: Present: normal inspection. Absent: tenderness, meningismus Respiratory exam: Present: wheezes, rhonchi. Absent: respiratory distress Cardiovascular Exam: Present: regular rate, normal rhythm GI/Abdominal exam: Present: soft. Absent: distended, tenderness Extremities exam: Present: normal inspection, normal capillary refill. Absent: pedal edema Neurological exam: Present: alert, oriented X3, CN II-XII intact. Absent: motor sensory deficit Psychiatric exam: Present: normal affect, normal mood Skin exam: Present: warm, dry, intact <Delon Barajas - Last Filed: 08/06/22 03:33> - General Exam Comments Initial Comments: Visual Physical Exam Vital signs reviewed General: Well-appearing, nontoxic, no acute distress. Head: Normocephalic, atraumatic Eyes: PERRLA, EOMI ENT: Airway patent Chest: Nonlabored breathing Skin: No visual rash, normal skin tone Neuro: Alert and oriented 3 Musculoskeletal: No gross abnormalities (Odessa Santiago) Course Vital Signs 08/06/22 08/06/22 08/06/22 00:04 02:46 02:52 Temperature 101.9 F H Pulse Rate 91 89 85 Respiratory 20 19 Rate Blood Pressure 215/96 200/90 O2 Sat by Pulse 96 94 L Oximetry 08/06/22 08/06/22 08/06/22 02:55 02:56 03:06 Temperature Pulse Rate 94 94 101 H Respiratory Rate Blood Pressure O2 Sat by Pulse Oximetry EKG Findings - EKG Comments: EKG Findings:: EKG: Sinus rhythm, rate of 86, CA interval 144, QRS duration 94, QTC [address] segment elevation <Delon Barajas N - Last Filed: 08/06/22 03:33> Medical Decision Making - Lab Data Result diagrams: 08/06/22 00:29 08/06/22 00:29 <Delon Barajas N - Last Filed: 08/06/22 03:33> - Medical Decision Making Was pt. sent in by a medical professional or institution (, PA, CERTIFIED GENETIC COUNSELOR, urgent care, hospital, or senior living...) When possible be specific @ -[No] Did you speak to anyone other than the patient for history (EMS, parent, family, police, friend...)? What history was obtained from this source @ -[No] Did you review nursing and triage notes (agree or disagree)? Why? @ -[I reviewed and agree with nursing and triage notes] Were old charts reviewed (outside hosp., previous admission, EMS record, old EKG, old radiological studies, urgent care reports/EKG's, senior living records)? Report findings @ -[No old charts were reviewed] Differential Diagnosis (chest pain, altered mental status, abdominal pain women, abdominal pain men, vaginal bleeding, weakness, fever, dyspnea, syncope, headache, dizziness, GI bleed, back pain, seizure, CVA, palpatations, mental health, musculoskeletal)? @ -Differential Dyspnea: Coronary syndrome, arrhythmia, tamponade, asthma, COPD, pulmonary embolism, pneumonia, pneumothorax, pulmonary effusion, anaphylaxis, diabetic ketoacidosis, flailed chest, pulmonary contusion, diaphragmatic rupture, anemia, neuromuscular, this is not meant to be an all-inclusive list. EKG interpreted by me (3pts min.). @ -[As above] X-rays interpreted by me (1pt min.). @ -Chest x-ray showing bronchitis and subtle infiltrate CT interpreted by me (1pt min.). @ -[None done] U/S interpreted by me (1pt. min.). @ -[None done] What testing was considered but not performed or refused? (CT, X-rays, U/S, labs)? Why? @ -[None] What meds were considered but not given or refused? Why? @ -[None] Did you discuss the management of the patient with other professionals (professionals i.e. , PA, CERTIFIED GENETIC COUNSELOR, lab, RT, psych nurse, psychosocial rehabilitation counselor, civil design specialist, teacher, military police officer, telephonic case manager)? Give summary @ -[No] Was smoking cessation discussed for >3mins.? @ -[No] Was critical care preformed (if so, how long)? @ -[No] Were there social determinants of health that impacted care today? How? (Homelessness, low income, unemployed, alcoholism, drug addiction, transportation, low edu. Level, literacy, decrease access to med. care, assisted, rehab)? @ -[No] Was there de-escalation of care discussed even if they declined (Discuss DNR or withdrawal of care, Hospice)? DNR status @ -[No] What co-morbidities impacted this encounter? (DM, HTN, Smoking, COPD, CAD, Cancer, CVA, ARF, Chemo, Hep., AIDS, mental health diagnosis, sleep apnea, morbid obesity)? @ -[Hypertension Was patient admitted / discharged? Hospital course, mention meds given and rout e, prescriptions, significant lab abnormalities, going to OR and other pertinent info. @ -[72-year-old male with fever, cough. Patient wheezing with scattered rhonchi. No respiratory distress, normal oxygenation. Given albuterol, Atrovent, steroids in the emergency department. His initiated on antibiotics in addition to the azithromycin that is currently taking. He has a normal CBC, normal CMP, negative viral swabs. I will change to Augmentin, add steroids and cough suppressant syrup. He will follow closely with primary care physician. Return parameters discussed at length with the patient and his who is a nurse practitioner. Undiagnosed new problem with uncertain prognosis? @ -[No] Drug Therapy requiring intensive monitoring for toxicity (Heparin, Nitro, Insulin, Cardizem)? @ -[No] Were any procedures done? @ -[No] Diagnosis/symptom? @ -[Bronchitis, pneumonia Acute, or Chronic, or Acute on Chronic? @ -[Acute Uncomplicated (without systemic symptoms) or Complicated (systemic symptoms)? @ -[complicated Side effects of treatment? @ -[No] Exacerbation, Progression, or Severe Exacerbation? @ -[No] Poses a threat to life or bodily function? How? (Chest pain, [place], [place], pneumonia, PE, COPD, DKA, ARF, appy, cholecystitis, CVA, Diverticulitis, Homicidal, Suicidal, threat to staff... and all critical care pts) @ -[Yes, bronchospasm, hypoxia, respiratory arrest (Delon Barajas) - Lab Data Lab Results 08/06/22 08/06/22 08/06/22 Range/Units 00:08 00:29 00:29 WBC 4.6 (3.8-10.6) k/uL RBC 5.01 (4.30-5.90) m/uL Hgb 13.9 (13.0-17.5) gm/dL Hct 41.9 (39.0-53.0) % MCV 83.7 (80.0-100.0) fL MCH 27.8 (25.0-35.0) pg MCHC 33.3 (31.0-37.0) g/dL RDW 14.1 (11.5-15.5) % Plt Count 194 (150-450) k/uL MPV 7.3 Neutrophils % 66 % Lymphocytes % 22 % Monocytes % 6 % Eosinophils % 2 % Basophils % 1 % Neutrophils # 3.1 (1.3-7.7) k/uL Lymphocytes # 1.0 (1.0-4.8) k/uL Monocytes # 0.3 (0-1.0) k/uL Eosinophils # 0.1 (0-0.7) k/uL Basophils # 0.0 (0-0.2) k/uL PT 10.5 (9.0-12.0) sec INR 1.0 (<1.2) APTT 24.3 (22.0-30.0) sec Sodium (137-145) mmol/L Potassium (3.5-5.1) mmol/L Chloride (98-107) mmol/L Carbon Dioxide (22-30) mmol/L Anion Gap mmol/L BUN (9-20) mg/dL Creatinine (0.66-1.25) mg/dL Est GFR (CKD-EPI)AfAm (>60 ml/min/1.73 sqM) Est GFR (CKD-EPI)NonAf (>60 ml/min/1.73 sqM) Glucose (74-99) mg/dL Calcium (8.4-10.2) mg/dL Total Bilirubin (0.2-1.3) mg/dL AST (17-59) U/L ALT (4-49) U/L Alkaline Phosphatase (38-126) U/L Troponin I (0.000-0.034) ng/mL Total Protein (6.3-8.2) g/dL Albumin (3.5-5.0) g/dL Urine Color Urine Appearance (Clear) Urine pH (5.0-8.0) Ur Specific [place] (1.001-1.035) Urine Protein (Negative) Urine Glucose (UA) (Negative) Urine Ketones (Negative) Urine Blood (Negative) Urine Nitrite (Negative) Urine Bilirubin (Negative) Urine Urobilinogen (<2.0) mg/dL Ur Leukocyte Esterase (Negative) Influenza Type A (PCR) Not Detected (Not Detectd) Influenza Type B (PCR) Not Detected (Not Detectd) RSV (PCR) Not Detected (Not Detectd) SARS-CoV-2 (PCR) Not Detected (Not Detectd) 08/06/22 08/06/22 08/06/22 Range/Units 00:29 00:29 01:43 WBC (3.8-10.6) k/uL RBC (4.30-5.90) m/uL Hgb (13.0-17.5) gm/dL Hct (39.0-53.0) % MCV (80.0-100.0) fL MCH (25.0-35.0) pg MCHC (31.0-37.0) g/dL RDW (11.5-15.5) % Plt Count (150-450) k/uL MPV Neutrophils % % Lymphocytes % % Monocytes % % Eosinophils % % Basophils % % Neutrophils # (1.3-7.7) k/uL Lymphocytes # (1.0-4.8) k/uL Monocytes # (0-1.0) k/uL Eosinophils # (0-0.7) k/uL Basophils # (0-0.2) k/uL PT (9.0-12.0) sec INR (<1.2) APTT (22.0-30.0) sec Sodium 143 (137-145) mmol/L Potassium 4.5 (3.5-5.1) mmol/L Chloride 109 H (98-107) mmol/L Carbon Dioxide 25 (22-30) mmol/L Anion Gap 9 mmol/L BUN 15 (9-20) mg/dL Creatinine 0.97 (0.66-1.25) mg/dL Est GFR (CKD-EPI)AfAm >90 (>60 ml/min/1.73 sqM) Est GFR (CKD-EPI)NonAf 79 (>60 ml/min/1.73 sqM) Glucose 97 (74-99) mg/dL Calcium 8.6 (8.4-10.2) mg/dL Total Bilirubin 0.8 (0.2-1.3) mg/dL AST 33 (17-59) U/L ALT 41 (4-49) U/L Alkaline Phosphatase 51 (38-126) U/L Troponin I <0.012 (0.000-0.034) ng/mL Total Protein 7.3 (6.3-8.2) g/dL Albumin 4.3 (3.5-5.0) g/dL Urine Color Yellow Urine Appearance Clear (Clear) Urine pH 6.5 (5.0-8.0) Ur Specific [place] 1.019 (1.001-1.035) Urine Protein Trace H (Negative) Urine Glucose (UA) Negative (Negative) Urine Ketones Negative (Negative) Urine Blood Negative (Negative) Urine Nitrite Negative (Negative) Urine Bilirubin Negative (Negative) Urine Urobilinogen 4.0 (<2.0) mg/dL Ur Leukocyte Esterase Negative (Negative) Influenza Type A (PCR) (Not Detectd) Influenza Type B (PCR) (Not Detectd) RSV (PCR) (Not Detectd) SARS-CoV-2 (PCR) (Not Detectd) Disposition <Odessa Santiago - Last Filed: 08/06/22 00:07> Is patient prescribed a controlled substance at d/c from ED?: No Time of Disposition: 03:31 <Delon Barajas - Last Filed: 08/06/22 03:33> Clinical Impression: Community acquired pneumonia, Bronchitis Disposition: HOME SELF-CARE Condition: Fair Instructions (If sedation given, give patient instructions): Acute Bronchitis (ED), Community Acquired Pneumonia (ED) Prescriptions: Amoxic-Pot Clav 875-125Mg [Augmentin 875-125] 1 tab PO Q12HR 10 Days #20 tab methylPREDNISolone Dose Pack [Medrol Dose Pack] 4 mg PO DIRECTED #21 packet Promethazine HCl/Codeine [Promethazine HCl/Codeine Solution] 5 ml PO Q6H 3 Days #60 ml Albuterol Inhaler [Ventolin Hfa Inhaler] 1 - 2 puff INHALATION Q4HR PRN #1 each PRN Reason: Shortness Of Breath Referrals: None,Stated [Primary Care Provider] - 1-2 days
[2022-08-06 00:56] LABS: Basophils % (A) 1 %; Eosinophils # (A) 0.1 k/uL (0-0.7); Eosinophils % (A) 2 %; HCT 41.9 % (39.0-53.0); HGB 13.9 gm/dL (13.0-17.5); Lymphocytes % (A) 22 %; MCH 27.8 pg (25.0-35.0); MCHC 33.3 g/dL (31.0-37.0); MCV 83.7 fL (80.0-100.0); Mean Platelet Volume 7.3; Monocytes # (A) 0.3 k/uL (0-1.0); Monocytes % (A) 6 %; Neutrophils # (A) 3.1 k/uL (1.3-7.7); Neutrophils % (A) 66 %; Platelet Count 194 k/uL (150-450); RBC 5.01 m/uL (4.30-5.90); RDW 14.1 % (11.5-15.5); WBC 4.6 k/uL (3.8-10.6)
[2022-08-06 01:02] LABS: Partial Thromboplastin Time 24.3 sec (22.0-30.0); Prothrombin Time 10.5 sec (9.0-12.0)
[2022-08-06 01:08] LABS: ALT 41 U/L (4-49); AST 33 U/L (17-59); African American GFR (CKD) >90 (>60 ml/min/1.73 sqM); Albumin 4.3 g/dL (3.5-5.0); Alkaline Phosphatase 51 U/L (38-126); Anion Gap 9 mmol/L; Blood Urea Nitrogen 15 mg/dL (9-20); Calcium 8.6 mg/dL (8.4-10.2); Carbon Dioxide 25 mmol/L (22-30); Chloride 109 mmol/L (98-107); Glucose 97 mg/dL (74-99); Non-African American GFR(CKD) 79 (>60 ml/min/1.73 sqM); Potassium 4.5 mmol/L (3.5-5.1); Sodium 143 mmol/L (137-145); Total Bilirubin 0.8 mg/dL (0.2-1.3); Total Protein 7.3 g/dL (6.3-8.2)
[2022-08-06] MEDS ORDERED: ACETAMINOPHEN TAB 500 MG TAB PO STA (01:33)
[2022-08-06] MEDS ORDERED: cefTRIAXone IN SWFI 1,000 MG/10 ML SYRINGE IVP STA (01:49)
[2022-08-06] MEDS ORDERED: ALBUTEROL NEBULIZED 2.5 MG/3 ML INHALATION STA (01:49)
[2022-08-06] MEDS ORDERED: IPRATROPIUM-ALBUTEROL 3 ML NEB INHALATION STA (01:49)
[2022-08-06] MEDS ORDERED: DEXAMETHASONE SOD PHOSPHATE 10 MG/ML 1 ML VIAL IV STA (01:49)
[2022-08-06 02:21] LABS: Appearance,Urine Clear (Clear); Bilirubin,Urine Negative (Negative); Blood,Urine Negative (Negative); Color,Urine Yellow; Glucose,Urine (UA) Negative (Negative); Ketones,Urine Negative (Negative); Leukocyte Esterase,Urine Negative (Negative); Nitrite,Urine Negative (Negative); PH, Urine 6.5 (5.0-8.0); Protein,Urine Trace (Negative); Specific Gravity,Urine 1.019 (1.001-1.035)
--- NOTE | 2022-08-06 02:25 | XR ---
EXAM: XR Chest, 2 Views CLINICAL HISTORY: ITS.REASON XR Reason: cough TECHNIQUE: Frontal and lateral views of the chest. COMPARISON: Comparison made to prior chest x-ray from April 10, 2015. FINDINGS: Lungs: Moderate to heavy peribronchial thickening of the central lower lobe bronchi. No consolidation. Pleural space: Unremarkable. No pneumothorax. Heart: Unremarkable. No cardiomegaly. Mediastinum: Unremarkable. Bones/joints: Unremarkable. IMPRESSION: Findings concerning for bronchitis, which may be infectious or inflammatory disease. No consolidation.
[2022-08-06 03:44] VITALS: BP 186/80; PULSE 63; RESP 18; TEMP 98.8
== END 2022-08-06 03:44 | disposition home or self-care (01) ==
LOC: EC 00:02
DX: J18.9 Pneumonia, unspecified organism (principal); J40 Bronchitis, not specified as acute or chronic; K21.9 Gastro-esophageal reflux disease without esophagitis; E78.5 Hyperlipidemia, unspecified; Z86.73 Personal history of transient ischemic attack (TIA), and cerebral infarction without residual deficits; Z91.011 Allergy to milk products; Z79.82 Long term (current) use of aspirin; Z79.899 Other long term (current) drug therapy; Z20.822 Contact with and (suspected) exposure to COVID-19
CPT/HCPCS: 36415; 94640 ×2; 93005; 80053; 84484; 85025; 85610; 85730; 81003; 87636; 71046; 99285; 96374; 96375; J1100; J0696

== ENCOUNTER → 2023-02-03 | Outpatient (CLI) | payer MEDICARE ==
--- NOTE | 2023-02-03 09:03 | US ---
EXAMINATION TYPE: US Aorta Screening DATE OF EXAM: 02/03/2023 COMPARISON: CT & US CLINICAL INDICATION: Male, 72 years old with history of M31.6 GIANT CELL ARTERITIS Z13.6 SCREEN AAA; AAA screening TECHNIQUE: Multiple sonographic images of the abdominal aorta are obtained. FINDINGS: EXAM MEASUREMENTS: Abdominal Aorta: Proximal: 2.1 x 2.0 cm Mid: 1.8 x 1.8 cm Distal: 1.6 x 1.8 cm Bifurcation: Obscured by overlying bowel gas [employer]CHO[employer] RESOURCE TEACHER NOTES: Large pt body habitus with overlying bowel gas Very difficult to visualize ao rta IMPRESSION: No visualized abdominal aortic aneurysm. The abdominal aorta bifurcation is obscured by overlying bow el gas.
--- NOTE | 2023-02-03 09:05 | US ---
EXAMINATION TYPE: US carotid duplex BILAT DATE OF EXAM: 02/03/2023 COMPARISON: US CLINICAL INDICATION: Male, 72 years old with history of M31.6 GIANT CELL ARTERITIS Z13.6 SCREEN AAA; Arteritis TECHNIQUE: Carotid duplex ultrasound examination. Indirect Doppler criteria was utilized. FINDINGS: Difficult scan due to large pt neck EXAM MEASUREMENTS: RIGHT: Peak Systolic Velocity (PSV) cm/sec ----- Right CCA: 64.2 ----- Right ICA: 109.2 ----- Right ECA: 117.3 ICA/CCA ratio: 1.7 RIGHT: End Diastole cm/sec ----- Right CCA: 11.9 ----- Right ICA: 31.7 ----- Right ECA: 10.7 LEFT: Peak Systolic Velocity (PSV) cm/sec ----- Left CCA: 92.7 ----- Left ICA: 109.5 ----- Left ECA: 72.2 ICA/CCA ratio: 1.2 LEFT: End Diastole cm/sec ----- Left CCA: 17.6 ----- Left ICA: 34.4 ----- Left ECA: 0.0 VERTEBRALS (direction of flow): Right Vertebral: Antegrade Left Vertebral: Unable to visualize due to large neck Rhythm: Normal ORDER SCHEDULE CLERK NOTES: No significant stenosis seen IMPRESSION: Limited examination due to patient's neck size. 1. No ultrasound evidence for hemodynamically significant stenosis of the bilateral visualized caroti d arterial systems. 2. Left vertebral artery is not visualized due to patient's large neck. Criteria for Assigning % of Stenosis / Diameter reduction (Estimation based on the indirect measurements of the internal carotid artery velocities (ICA PSV). 1. Normal (no stenosis)=ICA PSV < 125 cm/s: ratio < 2.0: ICA EDV<40 cm/s. 2. Less than 50% stenosis=ICA PSV < 125 cm/s: ratio < 2.0: ICA EDV<40 cm/s. 3. 50 to 69% stenosis=ICA PSV of 125 to 230 cm/s: ration 2.0 ? 4.0: ICA EDV 40-100 cm/s. 4. Greater than 70% stenosis to near occlusion= ICA PSV > 230 cm/s: ratio > 4.0: ICA EDV > 100 cm/s. 5. Near occlusion= ICA PSV velocities may be low or undetectable: variable ratio and ICA EDV. 6. Total occlusion=unable to detect flow.
== END | disposition home or self-care (01) ==
LOC: RADUSWWP 08:17
PROVIDERS: ATTEND Family Medicine
DX: Z13.6 Encounter for screening for cardiovascular disorders (principal); M31.6 Other giant cell arteritis
CPT/HCPCS: 76706; 93880

== ENCOUNTER 2023-05-29 08:49 | Day surgery (SDC) | payer MEDICARE ==
[2023-05-26 11:42] VITALS: BMI 31.4
[~2023-05-29 08:49] MED LIST changes: -DEXAMETHASONE SOD PHOSPHATE 4 MG/ML 1 ML VIAL IV ONE; -FAMOTIDINE 20 MG/2 ML VIAL IV ONE; -HYDROmorphone 0.5 MG/0.5 ML SYRINGE IVP PRN; +LIDOCAINE 1% (10MG/ML) FOR IV START INTRADERMA PRN; -MORPHINE SULFATE 2 MG/ML SYRINGE IV PRN; -ONDANSETRON 4 MG/2 ML VIAL IVP ONE; -ceFAZolin 1,000 MG in DEXTROSE/WATER 1 50ML.BAG IV ONE
[2023-05-29 09:42] VITALS: TEMP 97.3
[2023-05-29] MEDS ORDERED: PROPOFOL 10 MG/ML 20 ML VIAL IV ONE (10:00)
--- NOTE | 2023-05-29 10:16 | P.PCN ---
Date of Procedure: 05/29/23 Procedure(s) Performed: BRIEF HISTORY: Patient is a 72-year-old pleasant white male scheduled for an elective colonoscopy as a part of screening for colon cancer. PROCEDURE PERFORMED: Colonoscopy snare polypectomy. PREOPERATIVE DIAGNOSIS: Screening for colon cancer. IV sedation per Anesthesia. PROCEDURE: After informed consent was obtained, the patient, was brought into the endoscopy unit. IV sedation was administered by Anesthesia under continuous monitoring. Digital rectal examination was normal. Initially the Olympus CF-160 flexible video colonoscope was then inserted in the rectum, gradually advanced into the cecum without any difficulty. Careful examination was performed as the scope was gradually being withdrawn. Ileocecal valve and the appendiceal orifice were visualized and appeared normal. Prep was excellent. Mucosa of the cecum, ascending colon, transverse colon, descending colon, normal. In the distal sigmoid: There was a 5 limited polyp that was removed by cold snare polypectomy. sigmoid colon, and rectum appeared normal. At her sigmoid diverticulosis. Retroflexion was performed in the rectum and small internal hemorrhoids were seen. The patient tolerated the procedure well. IMPRESSION: 5 mm distal sigmoid colon polyp status post cold snare polypectomy Scattered sigmoidal divereticulosis Small internal hemorrhoids RECOMMENDATIONS: Findings of this examination were discussed with the patient as well as his family. He was advised to follow with the biopsy results and have a repeat colonoscopy in 5 years.
[2023-05-29 10:42] VITALS: BP 145/77; PULSE 62; RESP 18
== END 2023-05-29 11:04 | disposition home or self-care (01) ==
LOC: ORWHC2ENDO 08:49
PROVIDERS: ATTEND Internal Medicine Gastroenterology
DX: Z12.11 Encounter for screening for malignant neoplasm of colon (principal); K64.8 Other hemorrhoids; K63.5 Polyp of colon; I10 Essential (primary) hypertension; E78.5 Hyperlipidemia, unspecified; G43.909 Migraine, unspecified, not intractable, without status migrainosus; K21.9 Gastro-esophageal reflux disease without esophagitis; Z86.73 Personal history of transient ischemic attack (TIA), and cerebral infarction without residual deficits; Z79.899 Other long term (current) drug therapy; Z91.011 Allergy to milk products
CPT/HCPCS: 88305; 45385; J2704

== ENCOUNTER 2024-11-14 16:54 | Emergency (ER) | payer MEDICARE ==
[2024-11-14 17:11] VITALS: RESP 18
--- NOTE | 2024-11-14 17:21 | ED ---
General Adult HPI - General Chief complaint: Fall Stated complaint: Fall/R arm injury Time Seen by Provider: 11/14/24 17:12 Source: patient, RN notes reviewed Mode of arrival: ambulatory Limitations: no limitations - History of Present Illness Initial comments: 74-year-old male presenting to emergency department for complaints of a right arm injury that occurred this morning. Patient states that he was walking his dog outside when there was a hole that he did not notice when he stepped into the hole causing him to fall with majority of his weight onto his right elbow. Patient states that he is having pain over the right elbow and is unable to complete full range of motion due to this. Denies paresthesias. Denies hitting his head, loss consciousness, or blood thinner use. - Related Data Home Medications Medication Instructions Recorded Confirmed amLODIPine [Norvasc] 2.5 mg PO DAILY 06/22/16 11/14/24 Aspirin 81 mg PO DAILY 01/27/18 11/14/24 Fenofibrate [Lofibra] 160 mg PO HS 01/27/18 11/14/24 Aspirin/Acetaminophen/Caffeine 1 tab PO Q6H PRN 11/14/24 11/14/24 [Excedrin Extra Strength Caplet] Cetirizine HCl [Zyrtec] 10 mg PO DAILY 11/14/24 11/14/24 Cholecalciferol [Vitamin D3 (125 125 mcg PO DAILY 11/14/24 11/14/24 Mcg = 5000 Iu)] Levothyroxine Sodium [Synthroid] 25 mcg PO DAILY 11/14/24 11/14/24 Metoprolol Succinate [Metoprolol 25 mg PO BID 11/14/24 11/14/24 Succinate ER] Naproxen Sodium [Aleve] 220 mg PO BID PRN 11/14/24 11/14/24 Rosuvastatin Calcium [Crestor] 40 mg PO HS 11/14/24 11/14/24 [place] 160 mg PO HS 11/14/24 11/14/24 flaxseed oiL [Flax Oil] 1,300 mg PO HS 11/14/24 11/14/24 Allergies Allergy/AdvReac Type Severity Reaction Status Date / Time lactose Allergy Nausea & Verified 11/14/24 18:16 Vomiting & Diarrhea Review of Systems ROS Statement: Those systems with pertinent positive or pertinent negative responses have been documented in the HPI. ROS Other: All systems not noted in ROS Statement are negative. Past Medical History Past Medical History: CVA/TIA, GERD/Reflux, Hyperlipidemia, Hypertension, Osteoarthritis (OA), Seizure Disorder Additional Past Medical History / Comment(s): Hx Gastroparesis 2017. Hx left orchitis(Testicle swelling). Blind since , uses cane. Slight weakness on the right side from stroke in 2015. Hx seizures in high school, none since. Right hand and left leg callouses treated with nitrogen recently. History of Any Multi-Drug Resistant Organisms: None Reported Past Surgical History: Hernia Repair, Orthopedic Surgery Additional Past Surgical History / Comment(s): LEFT TESTICLE PROCEDURE TO RELIEVE ORCHITIS, COLONOSCOPY (polyps removed), RIGHT SHOULDER SURGERY. Past Anesthesia/Blood Transfusion Reactions: No Reported Reaction Past Psychological History: No Psychological Hx Reported Smoking Status: Former smoker Past Alcohol Use History: Occasional Past Drug Use History: None Reported - Past Family History Mother Family Medical History: No Reported History Father Additional Family Medical History / Comment(s): Aortic aneurysms. General Exam Limitations: no limitations Neck exam: Present: normal inspection. Absent: tenderness, meningismus, lymphadenopathy Respiratory exam: Present: normal lung sounds bilaterally. Absent: respiratory distress, wheezes, rales, rhonchi, stridor Cardiovascular Exam: Present: regular rate, normal rhythm, normal heart sounds. Absent: systolic murmur, diastolic murmur, rubs, gallop, clicks GI/Abdominal exam: Present: soft, normal bowel sounds. Absent: distended, tenderness, guarding, rebound, rigid Right Upper Arm exam: Present: full ROM, tenderness. Absent: swelling Elbow exam: Present: tenderness, swelling, abrasion. Absent: full ROM, deformity, crepitus Neuro motor exam: Present: wrist extension intact, thumb opposition intact Vascular: Present: normal capillary refill. Absent: vascular compromise Back exam: Present: normal inspection Neurological exam: Present: alert, oriented X3, CN II-XII intact Course Vital Signs 11/14/24 11/14/24 17:07 18:49 Temperature 97.8 F 98.0 F Pulse Rate 66 65 Respiratory 18 18 Rate Blood Pressure 198/77 198/94 O2 Sat by Pulse 95 98 Oximetry Procedures - Orthopedic Splinting/Casting Injury #1 Side: right Upper Extremity Injury Location: long arm Upper Extremity Immobilizer: posterior splint, Ab wrap, synthetic pre-padded splint Medical Decision Making - Medical Decision Making Was pt. sent in by a medical professional or institution ([facility], [facility], urgent care, hospital, or intermediate...) When possible be specific @ -No Did you speak to anyone other than the patient for history (EMS, parent, family, police, friend...)? What history was obtained from this source @ -No Did you review nursing and triage notes (agree or disagree)? Why? @ -I reviewed and agree with nursing and triage notes Were old charts reviewed (outside hosp., previous admission, EMS record, old EKG, old radiological studies, urgent care reports/EKG's, intermediate records)? Report findings @ -No old charts were reviewed Differential Diagnosis (chest pain, altered mental status, abdominal pain women, abdominal pain men, vaginal bleeding, weakness, fever, dyspnea, syncope, headache, dizziness, GI bleed, back pain, seizure, CVA, palpatations, mental health, musculoskeletal)? @ -Elbow fracture, elbow sprain, skin abrasion, shoulder fracture, this list is not all inclusive EKG interpreted by me (3pts min.). @ -None X-rays interpreted by me (1pt min.). @ -X-ray imaging of the right elbow and right shoulder reveals no acute osseous abnormality. CT interpreted by me (1pt min.). @ -None done U/S interpreted by me (1pt. min.). @ -None done What testing was considered but not performed or refused? (CT, X-rays, U/S, labs)? Why? @ -None What meds were considered but not given or refused? Why? @ -None Did you discuss the management of the patient with other professionals (professionals i.e. [facility], [facility], lab, RT, psych nurse, director of social work, weed cooking operator, teacher, fire control officer, high risk case manager)? Give summary @ -No Was smoking cessation discussed for >3mins.? @ -No Was critical care preformed (if so, how long)? @ -No Were there social determinants of health that impacted care today? How? (Homelessness, low income, unemployed, alcoholism, drug addiction, transportation, low edu. Level, literacy, decrease access to med. care, senior living, rehab)? @ -No Was there de-escalation of care discussed even if they declined (Discuss DNR or withdrawal of care, Hospice)? DNR status @ -No What co-morbidities impacted this encounter? (DM, HTN, Smoking, COPD, CAD, Cancer, CVA, ARF, Chemo, Hep., AIDS, mental health diagnosis, sleep apnea, morbid obesity)? @ -None Was patient admitted / discharged? Hospital course, mention meds given and route, prescriptions, significant lab abnormalities, going to OR and other pertinent info. @ -Discharge. 74-year-old male presenting after a fall. Patient noted to have abrasion over the right elbow. Patient is unable to complete full range of motion actively due to pain of the elbow. He is neurovascularly intact of the right upper extremity. Abrasion is cleansed and topical bacitracin is applied over. X-ray imaging is unremarkable of the shoulder and elbow. With the patient having pain with range of motion and saying that he is unable to complete active range of motion by himself he is placed in a posterior splint and in a sling and instructed to follow-up with commodity management specialist. Recommend he continue Tylenol and/or Motrin as needed for pain relief. Case discussed with my attending Dr. Corado Undiagnosed new problem with uncertain prognosis? @ -No Drug Therapy requiring intensive monitoring for toxicity (Heparin, Nitro, Insulin, Cardizem)? @ -No Were any procedures done? @ -No Diagnosis/symptom? @ -sprain of elbow, abrasion Acute, or Chronic, or Acute on Chronic? @ -acute Uncomplicated (without systemic symptoms) or Complicated (systemic symptoms)? @ -uncomplicated Side effects of treatment? @ -No Exacerbation, Progression, or Severe Exacerbation? @ -No Poses a threat to life or bodily function? How? (Chest pain, [place], [place], pneumonia, PE, COPD, DKA, ARF, appy, cholecystitis, CVA, Diverticulitis, Homicidal, Suicidal, threat to staff... and all critical care pts) @ -No Disposition Clinical Impression: Fall, Sprain of right elbow Disposition: HOME SELF-CARE Condition: Good Instructions (If sedation given, give patient instructions): Fall Prevention for Older Adults (ED) Additional Instructions: Please return to the Emergency Department if symptoms worsen or any other concerns. Continue to take Tylenol and/or Motrin as needed for pain relief. Keep splint in place and continue to use sling until follow-up with provided commodity management specialist. Is patient prescribed a controlled substance at d/c from ED?: No Referrals: Peewee Anderson MD [Primary Care Provider] - 1-2 days Apryl Aguilar [Doctor of Osteopathic Medicine] - 1-2 days Time of Disposition: 18:39
--- NOTE | 2024-11-14 17:56 | XR ---
EXAMINATION TYPE: XR shoulder complete RT DATE OF EXAM: 11/14/2024 5:44 PM INDICATION: Patient age:Male; 74 years old; Reason for study: fall, pain; pain COMPARISON: Chest radiograph 04/10/2015 TECHNIQUE: The right shoulder was examined in AP, internally rotated and scapular Y projections. . FINDINGS: No evidence of acute osseous pathology, joint dislocation, or soft tissue swelling. The remaining por tions of the visualized chest are unremarkable. IMPRESSION: No acute osseous pathology. [facility], , 11/14/2024 5:53 PM
--- NOTE | 2024-11-14 17:57 | XR ---
EXAMINATION TYPE: XR elbow complete RT DATE OF EXAM: 11/14/2024 5:44 PM INDICATION: Patient age:Male; 74 years old; Reason for study: fall, pain; PHH. pain COMPARISON: None TECHNIQUE: The right elbow was examined in AP, lateral, and oblique projections. FINDINGS: No evidence of any acute osseous pathology, joint dislocation, or soft tissue swelling is n oted. No evidence of joint effusion is present. IMPRESSION: No evidence of acute fracture. [facility], , 11/14/2024 5:54 PM
[2024-11-14] MEDS: BACITRACIN OINT 1 EACH PACKET TOPICAL ONE (18:07)
[2024-11-14 18:58] VITALS: BP 198/94; PULSE 65; TEMP 98
== END 2024-11-14 18:57 | disposition home or self-care (01) ==
LOC: EC 16:54
DX: S53.401A Unspecified sprain of right elbow, initial encounter (principal); Z86.73 Personal history of transient ischemic attack (TIA), and cerebral infarction without residual deficits; Z87.891 Personal history of nicotine dependence; Z91.011 Allergy to milk products; W17.2XXA Fall into hole, initial encounter
CPT/HCPCS: 29105; 99283